=== PATIENT | female | born 1940 | race Caucasian/White ===

== ENCOUNTER 2018-01-24 09:25 | Outpatient (CLI) | payer MEDICARE, BC | END 2018-01-24 09:26 | disposition home or self-care (01) | LOC: BICRAD 09:25 | PROVIDERS: ATTEND Internal Medicine Gastroenterology | DX: K59.09 Other constipation (principal); K58.9 Irritable bowel syndrome, unspecified | CPT/HCPCS: 74018 ==

== ENCOUNTER 2018-04-19 11:59 | Outpatient (CLI) | payer MEDICARE, BC ==
--- NOTE | 2018-04-19 16:16 | MRI ---
MRI ABDOMEN WITH AND WITHOUT IV CONTRAST: (MR ENTEROGRAPHY) Date: 04/19/18 HISTORY: Constipation, diarrhea. FINDINGS: The visualized portions of the liver, spleen, pancreas, adrenal glands, and kidneys are normal. The p atient is post cholecystectomy. No free air, free fluid, or lymphadenopathy noted in the abdomen or p tony. The small bowel loops are not abnormally dilated. No abnormal postcontrast enhancement or enhancing m ass is seen. The patient is post hysterectomy. A 1.0 cm Bartholin gland cyst is present in the vagina . The bone marrow signal is normal. There is sigmoid diverticulosis. IMPRESSION: Sigmoid diverticulosis. POS: OFF
== END 2018-04-19 12:00 | disposition home or self-care (01) ==
LOC: MRI 11:59 → EDSTATUS 13:00
PROVIDERS: ATTEND Internal Medicine Gastroenterology
DX: K59.09 Other constipation (principal); R19.7 Diarrhea, unspecified; K57.30 Diverticulosis of large intestine without perforation or abscess without bleeding
CPT/HCPCS: 36415; 74183; 82565

== ENCOUNTER 2018-12-31 15:47 | Emergency (ER) | payer MEDICARE, BC ==
[2018-12-31] MEDS ORDERED: Morphine 4 MG/ML VIAL ONE (16:27)
[2018-12-31] MEDS ORDERED: Ondansetron PF 4 MG/2 ML Vial ONE (16:29)
[2018-12-31 16:58] LABS: #Basophils 0.1 thou/uL (0.0-0.2); #Eosinphils 0.3 thou/uL (0.0-0.7); #Lymphocytes 1.5 thou/uL (1.20-3.40); #Monocytes 0.6 thou/uL (0.11-0.59); #Neutrophils 6.3 thou/uL (1.40-6.50); %Basophils 0.9 % (0.0-1.0); %Eosinophils 3.3 % (0.0-10.0); %Lymphocytes 16.9 % (21.0-51.0); %Monocytes 6.8 % (0.0-10.0); %Neutrophils 72.1 % (42.0-75.0); Hemoglobin 13.4 g/dL (12.0-16.0); Mean Corpuscular Hemoglobin 30.3 pg (27.0-31.0); Mean Corpuscular Volume 91.8 fL (78.0-98.0); Mean Platelet Volume 7.2 fL (7.4-10.4); Platelet Count 233 thou/uL (130-400); RBC Distribution Width 11.8 % (11.5-14.5); Red Blood Cell (RBC) Count 4.43 mill/uL (4.20-5.40); White Blood Cell (WBC) Count 8.7 thou/uL (4.8-10.8)
[2018-12-31 17:14] LABS: ALT (SGPT) 13 U/L (8-55); AST (SGOT) 18 U/L (5-34); Albumin 4.1 g/dL (3.4-4.8); Alkaline Phosphatase 96 U/L (40-150); Anion Gap 15 mmol/L (10-20); BUN (Urea Nitrogen) 21 mg/dL (9.8-20.1); Bilirubin, Total 0.4 mg/dL (0.2-1.2); Calc. Creatinine Clearance 0 mL/min (70-130); Calcium 9.7 mg/dL (7.8-10.44); Carbon Dioxide 19 mmol/L (23-31); Chloride 108 mmol/L (98-107); Estimated GFR-MDRD 47; Glucose 98 mg/dL (83-110); Potassium 3.9 mmol/L (3.5-5.1); Protein, Total 7.1 g/dL (6.0-8.3); Sodium 138 mmol/L (136-145)
[2018-12-31 18:27] LABS: Bilirubin Negative (Negative); Blood, Urine Negative (Negative); Glucose, Urine (Dipstick) Negative (Negative); Leukocyte Small (Negative); Nitrite Negative (Negative); Protein, Urine (Dipstick) Negative (Neg-Trace); Urobilinogen 0.2 mg/dL (0.2-1.0); pH, Urine 5.5 (5.0-9.0)
[2018-12-31 18:28] LABS: Clarity Hazy (Clear); Specific Gravity, Urine 1.008 (1.002-1.036)
--- NOTE | 2018-12-31 18:28 | CT ---
CT ABDOMEN WITH CONTRAST CT PELVIS WITH CONTRAST: DATE: 12/31/18 at 6:07 p.m. HISTORY: 78-year-old female with lower abdominal pain and constipation. COMPARISON: None available. TECHNIQUE: IV injection of iodinated contrast media: Isovue 370 Oral contrast media: Administered FINDINGS: No pleural effusion. No pneumoperitoneum or ascites. Absent uterus. Pelvic relaxation. Distended urin samira bladder with thin, normal kate. No evidence of colonic diverticulitis. Liquid stool in the cecum , throughout the ascending colon, transverse colon with air fluid levels, and descending colon. Ther e is solid stool throughout the rectosigmoid. Moderate dilation of right renal pelvis and mild to mod erate dilation of right renal calyces. Mild dilation of left renal calyces and left renal pelvis. Mil d dilation of proximal bilateral ureters, left greater than right. No evidence of renal, ureteral, or bladder calculus. Liver, abdominal aorta, spleen, adrenals, and pancreas, demonstrate no major patho logy. Large duodenal diverticulum with air fluid level displacing the pancreatic head. Cholecystectom y clips in the gallbladder fossa. No small bowel dilation. Oral contrast material has not reached the terminal ileum. Normal appendix. Surgical clips are present adjacent to the esophagogastric junction , where there is architectural distortion. IMPRESSION: 1. Solid stool in the rectosigmoid colon (current constipation), and liquid stool throughout the rest of the colon proximal to it (impending diarrhea). 2. Probable Tabitha fundoplication. 3. Status post cholecystectomy. 4. No small bowel obstruction. 5. Mild to moderate right hydronephrosis and mild left hydronephrosis, probably due to distende d urinary bladder. 6. Status post hysterectomy and resultant pelvic relaxation. CRISTEL Hallman POS: KARI
[2018-12-31 18:29] LABS: Bacteria/HPF 1+ HPF (None Seen); RBC/HPF None Seen HPF (0-3)
== END 2018-12-31 18:38 | disposition home or self-care (01) ==
LOC: SCSER 15:47
DX: R10.30 Lower abdominal pain, unspecified (principal); I10 Essential (primary) hypertension; F32.9 Major depressive disorder, single episode, unspecified; Z79.899 Other long term (current) drug therapy
CPT/HCPCS: 74177; 80053; 81003; 81015; 85025; 87086; 96361; 96374; 96375; J2270; J2405

== ENCOUNTER 2019-04-24 18:38 | Observation (INO) | payer MEDICARE, BC ==
--- NOTE | 2019-04-24 19:48 | CT ---
EXAM: CT brain without contrast HISTORY: Subdural hemorrhage seen on MRI performed earlier today COMPARISON: MRI brain 04/24/2019 TECHNIQUE: Multiple contiguous axial images were obtained and a CT of the brain without contrast. FINDINGS: There are scattered hypodensities in the subcortical and periventricular white matter consi stent with small vessel ischemic disease. There appear to be bilateral subdural hygromas, left greater than right. There is a very small hyperdense region in the anterior aspect of the left subdur al collection which may represent a small amount of acute on chronic blood. No significant midline shift or downward herniation are seen. The calvarium and overlying soft tissues are unremarkable. The visualized paranasal sinuses and masto id air cells are well aerated. IMPRESSION: Subdural hygromas with small hyperdense region in the left frontal region which may repre sent a small amount of acute on chronic subdural hematoma.
--- NOTE | 2019-04-24 19:49 | CT ---
EXAM: CT of the cervical spine without contrast HISTORY: 2 recent falls. Subdural hemorrhage seen on MRI. Neck pain. COMPARISON: None TECHNIQUE: Multiple contiguous axial images were obtained in a CT of the cervical spine without contr ast. Sagittal and coronal reformats were performed. FINDINGS: The vertebral bodies demonstrate normal height and alignment without fracture or subluxatio n. No prevertebral soft tissue swelling is seen. Severe degenerative changes are seen throughout the cervical spine. The posterior facets are well aligned. Normal alignment of the skull base with the cervical spine is seen. The lung apices and cervical soft tissues are unremarkable. IMPRESSION: Severe degenerative changes without evidence of acute osseous abnormality of the cervical spine.
--- NOTE | 2019-04-24 19:51 | RAD ---
EXAM: Single view of the chest HISTORY: Subdural hematoma. Multiple recent falls. COMPARISON: None FINDINGS: Single view of the chest shows a normal sized cardiomediastinal silhouette. There is no nasreen dence of consolidation, mass, or pleural effusion. Degenerative changes are seen in the spine. IMPRESSION: No evidence of acute cardiopulmonary disease
[2019-04-24 20:22] LABS: #Basophils 0.1 thou/uL (0.0-0.2); #Eosinphils 0.4 thou/uL (0.0-0.7); #Lymphocytes 1.9 thou/uL (1.20-3.40); #Monocytes 0.6 thou/uL (0.11-0.59); #Neutrophils 4.9 thou/uL (1.40-6.50); %Basophils 0.8 % (0.0-1.0); %Eosinophils 5.6 % (0.0-10.0); %Lymphocytes 23.6 % (21.0-51.0); %Monocytes 8.1 % (0.0-10.0); %Neutrophils 61.9 % (42.0-75.0); Hemoglobin 13.7 g/dL (12.0-16.0); Mean Corpuscular HGB CONC 33.6 g/dL (32.0-36.0); Mean Corpuscular Hemoglobin 31.1 pg (27.0-31.0); Mean Corpuscular Volume 92.4 fL (78.0-98.0); Mean Platelet Volume 7.5 fL (7.4-10.4); Platelet Count 201 thou/uL (130-400); Red Blood Cell (RBC) Count 4.41 mill/uL (4.20-5.40); White Blood Cell (WBC) Count 7.9 thou/uL (4.8-10.8)
[2019-04-24 20:29] LABS: INR-International Normal Ratio 1.1; Prothrombin Time 14.6 SEC (12.0-14.7)
[2019-04-24 20:45] LABS: ALT (SGPT) 12 U/L (8-55); AST (SGOT) 16 U/L (5-34); Alkaline Phosphatase 99 U/L (40-150); Anion Gap 15 mmol/L (10-20); BUN (Urea Nitrogen) 19 mg/dL (9.8-20.1); Bilirubin, Total 0.4 mg/dL (0.2-1.2); Calc. Creatinine Clearance 0 mL/min (70-130); Calcium 9.2 mg/dL (7.8-10.44); Carbon Dioxide 19 mmol/L (23-31); Chloride 105 mmol/L (98-107); Estimated GFR-MDRD 51; Globulin 2.9 g/dL (2.4-3.5); Glucose 76 mg/dL (83-110); Potassium 4.1 mmol/L (3.5-5.1); Protein, Total 6.9 g/dL (6.0-8.3); Sodium 135 mmol/L (136-145)
[2019-04-24 20:46] LABS: PTT 22.6 SEC (22.9-36.1)
[2019-04-24] MEDS ORDERED: Aspirin Chewable 81 MG TAB ONE (21:54)
[2019-04-24 22:02] LABS: Bilirubin Negative (Negative); Blood, Urine Negative (Negative); Clarity CLOUDY (Clear); Glucose, Urine (Dipstick) Negative (Negative); Leukocyte Large (Negative); Nitrite Negative (Negative); Protein, Urine (Dipstick) Negative (Neg-Trace); Urobilinogen 0.2 mg/dL (0.2-1.0)
[2019-04-24 22:06] LABS: Bacteria/HPF None Seen HPF (None Seen); Hyaline Casts/LPF 4-6 HYALINE CAST LPF (0-3 Hyaline); Pathc Cast-AUWi Flag 0.68 (0-2.49); WBC/HPF Greater Than 50 HPF (0-3)
[2019-04-24 23:43] LABS: Troponin I 0.095 ng/mL (< 0.028)
[2019-04-25] MEDS ORDERED: Zolpidem Tartrate 5 MG TAB PO SCH ×2 (00:45→21:00)
[2019-04-25 02:33] LABS: Troponin I 0.086 ng/mL (< 0.028)
[2019-04-25 05:30] VITALS: BMI 24.5
[2019-04-25] MEDS ORDERED: Acetaminophen 325 MG TAB PO PRN (08:55)
[2019-04-25] MEDS ORDERED: Ondansetron PF 4 MG/2 ML Vial IVP PRN (08:55)
[2019-04-25] MEDS ORDERED: Prevnar 13-Val Conj/PF 0.5 ML SYRINGE IM ONE (09:00)
--- NOTE | 2019-04-25 09:58 | HP ---
PRIMARY CARE PROVIDER: Dr. Paulino. CHIEF COMPLAINT: Abnormal MRI. HISTORY OF PRESENT ILLNESS: This is a 78-year-old female with major depressive disorder, on multiple medications, who presented to her primary care provider's office yesterday with a complaint of falls and weakness. The patient received an MRI, and was contacted by Dr. Paulino around 5:00 p.m. and directed to the emergency room due to concern of subdural hematoma. The patient reports last week on Wednesday, having a fall. She states that she was sitting on the couch, went up to go to bed, followed by blacking out and weakness. She was not feeling poorly prior to this, and had a fall and landed on the left side of her face. was able to assist her into bed. Two days later, now four days ago, she had a fall in the bathroom. She denies any chest pain, fevers, or chills. Denies any shortness of breath, nausea, or vomiting. She has a history of IBS with alternating diarrhea and constipation, and states that this is unchanged. She has worked with multiple GI providers for management of this. Since the fall, she has noted nasal congestion, headache, difficulty with sleeping. She reports a new medications started 2 weeks ago to help with the IVF. Denies any other changes of her usual medications. In the emergency room, the patient underwent a CT scan, which shows some changes and may represent a small amount of acute on chronic subdural hematoma. In the emergency room, per the documentation shows that the patient received aspirin 324 mg. ALLERGIES: NO KNOWN ALLERGIES TO MEDICATION. CURRENT MEDICATIONS: Per the ER list and this will need to be confirmed with Mami at [facility]; 1. Perphenazine 2 mg b.i.d. 2. Exline 300 mg at bedtime. 3. Venlafaxine 75 mg b.i.d. 4. Lamotrigine 25 mg two tablets b.i.d. 5. Linzess. PAST MEDICAL HISTORY: 1. Major depressive disorder. 2. IBS. PAST SURGICAL HISTORY: 1. Cholecystectomy. 2. Hiatal hernia repair. 3. Toe surgery. SOCIAL HISTORY: The patient is . Has a glass of wine at night with dinner. No tobacco. She is a full code and surrogate decision maker is her . FAMILY HISTORY: Significant for major depressive disorder and suicide in her brother at age 25. REVIEW OF SYSTEMS: Positive for diarrhea, 3 episodes yesterday with 1 episode of passing hard stool, nasal congestion, headache in the frontal area, restless sleep. Negative for chest pain, difficulty breathing, dizziness, nausea, vomiting, or abdominal pain. All remaining review of systems are reviewed and negative. PHYSICAL EXAMINATION: VITAL SIGNS: Blood pressure 119/74, temperature 97.8, pulse 88, respirations 17 , saturations 92% on room air. GENERAL: Awake, alert, responsive, in no apparent distress. Able to answer questions appropriately. HEENT: She has areas of ecchymosis around her left eye. Pupils equal, round, and reactive to light. Oral mucosa is pink and moist. NECK: Supple, nontender. LYMPHATICS: No palpable cervical or supraclavicular lymphadenopathy. VASCULAR: No audible carotid bruits. LUNGS: Clear to auscultation bilateral. No audible wheezing, rhonchi, or rales. HEART: Normal S1 and S2. Regular rate and rhythm. No audible murmurs. ABDOMEN: Soft with present bowel sounds. Nontender, nondistended. EXTREMITIES: No clubbing, cyanosis, or edema. NEUROLOGIC: No gross deficits. 2+ patellar, brachioradialis, and biceps reflexes with no ankle clonus bilateral. PSYCHIATRIC: The patient is euthymic. Alert and oriented x4. LABORATORY DATA: Reviewed. CBC shows 7.9, 13.7, 40.7, 201. INR 1.1. Chemistry; 135, 4.1, 105, 19, 19, 1.05, 76. LFTs negative. Troponin 0.082, 0.095, 0.086. Urinalysis shows large leukocyte esterase, greater than 50 white blood cells, 4 to 6 squamous cells, and 4 to 6 hyaline casts. IMAGING STUDIES: EKG, personally reviewed, normal axis, normal intervals, sinus rhythm, and no ST changes. Chest x-ray, personally reviewed, negative for acute cardiopulmonary disease. Brain CT, subdural hygromas with small hyperdense region in the left frontal area, which may represent a small amount of acute on chronic subdural hematoma. CT of the neck shows severe degenerative changes without evidence of acute osseous abnormality. IMPRESSION: 1. Syncope in a the patient with a new diagnosis of subdural hematoma. 2. Urinary tract infection. 3. Irritable bowel syndrome with diarrhea. 4. Major depressive disorder, on multiple medications to include lithium. 5. Metabolic acidosis may be secondary to diarrhea. PLAN: 1. Observation status in the hospital for now. 2. Neurosurgery consultation given the abnormal CT. 3. Documentation from the ER shows aspirin was administered. We will look into this, hold on any further here and avoid NSAIDs. 4. Initiation of Rocephin IV and obtain urine culture from the sample collected in the ED. 5. Clarify her home medications and resume the appropriate ones. 6. We will check a lithium level. 7. Check C diff given the reported diarrhea. 8. PT/OT. 9. Monitoring of her blood count and electrolytes. 10. Obtain carotid ultrasound and echocardiogram, monitor on telemetry for syncope evaluation. 11. The patient is at high risk given age comorbidities and current presentation. 12. Anticipated length of stay pending on workup as well as response to therapy. 13. Reviewed the plan of care with the patient, who demonstrates understanding. No questions or further needs at the end of evaluation. 14. The patient is a full code. Surrogate decision maker is her . Job ID: [id number] [facility]
[2019-04-25] MEDS ORDERED: lamoTRIgine 100 MG TAB PO SCH (11:30)
[2019-04-25] MEDS ORDERED: Venlafaxine HCl XR 75 MG CAP PO SCH (11:45)
[2019-04-25] MEDS ORDERED: Perphenazine 2 MG TAB PO SCH (11:45)
--- NOTE | 2019-04-25 11:54 | ULT ---
CAROTID ULTRASOUND WITH ACOSTA SCALE AND DOPPLER DUPLEX COLOR FLOW IMAGING SPECTRAL ANALYSIS PERFORMED: DATE: 04/25/19 CLINICAL INDICATION: Syncope. FINDINGS: There is scattered mild atherosclerotic calcification of the carotid arteries. PEAK SYSTOLIC VELOCITY (CM/S): Right CCA 88 Left CCA 66 Right ICA 79 Left ICA 94 There is antegrade flow within the visualized bilateral vertebral arteries. IMPRESSION: 1. No hemodynamically significant stenosis of the right internal carotid artery. 2. No hemodynamically significant stenosis of the left internal carotid artery. POS: [facility]
[2019-04-25] MEDS: cefTRIAXone\\ROCEPHIN 1 GM in Sodium Chloride 0.9% 100 ML IVPB SCH (12:33)
[2019-04-25] MEDS ORDERED: Acetaminophen 500 MG TAB PO PRN (18:38)
[2019-04-25] MEDS: Venlafaxine HCl XR 75 MG CAP PO SCH (21:23)
[2019-04-25] MEDS: lamoTRIgine 100 MG TAB PO SCH (21:23)
[2019-04-25] MEDS: Perphenazine 2 MG TAB PO SCH (21:23)
[2019-04-26 05:02] LABS: #Basophils 0.1 thou/uL (0.0-0.2); #Eosinphils 0.4 thou/uL (0.0-0.7); #Lymphocytes 1.4 thou/uL (1.20-3.40); #Monocytes 0.5 thou/uL (0.11-0.59); #Neutrophils 2.6 thou/uL (1.40-6.50); %Basophils 1.4 % (0.0-1.0); %Eosinophils 9.1 % (0.0-10.0); %Lymphocytes 27.4 % (21.0-51.0); %Monocytes 9.5 % (0.0-10.0); %Neutrophils 52.6 % (42.0-75.0); Hemoglobin 12.5 g/dL (12.0-16.0); Mean Corpuscular HGB CONC 33.4 g/dL (32.0-36.0); Mean Corpuscular Hemoglobin 31.1 pg (27.0-31.0); Mean Corpuscular Volume 92.9 fL (78.0-98.0); Mean Platelet Volume 6.8 fL (7.4-10.4); Platelet Count 185 thou/uL (130-400); RBC Distribution Width 11.8 % (11.5-14.5); Red Blood Cell (RBC) Count 4.03 mill/uL (4.20-5.40); White Blood Cell (WBC) Count 4.9 thou/uL (4.8-10.8)
[2019-04-26 05:24] LABS: Anion Gap 12 mmol/L (10-20); BUN (Urea Nitrogen) 12 mg/dL (9.8-20.1); Calc. Creatinine Clearance 47 mL/min (70-130); Calcium 9.4 mg/dL (7.8-10.44); Carbon Dioxide 21 mmol/L (23-31); Chloride 108 mmol/L (98-107); Estimated GFR-MDRD 55; Glucose 88 mg/dL (83-110); Sodium 137 mmol/L (136-145)
--- NOTE | 2019-04-26 07:39 | CON ---
DATE OF CONSULTATION: Ms. Linder is a very pleasant 78-year-old woman, who over the past 12 to 18 months has been experiencing falls calls syncopal events or blackouts or she does not recall. Most recently, she has had two in the last 90 days, striking her face most recently, where she has a small amount of ecchymosis over the left cheek. also states over the last 2 years, she has been dealing with hallucinations where she is seeing and hearing groups of people interacting in the home whom are clearly not there. This is being worked up by her primary care physician, Dr. Paulino, and most recently, an MRI was performed in the outpatient setting, which revealed chronic subdural fluid collection of the left frontal temporal convexity, and for this purpose, she was sent to the emergency department for further evaluation, where they performed a CT scan, that confirmed this. This was the reason that Neurosurgery was consulted. She was admitted for workup here and for workup of her syncopal events, and our colleagues in Medicine have been performing a diagnostic work to work this up. From an imaging perspective, this subdural collection is definitively chronic with maybe one small area anteriorly that could potentially show a spot of acute blood, which is only a couple of millimeters wide. The chronic bleed that is present is minimally compressed within the underlying brain parenchyma. There is no midline shift, and from a neurologic perspective, the patient is alert and oriented x4. She has no neurologic deficit. Her exam is nonfocal and she is very pleasant. Speech is fluid and uninhibited and appropriate. From neurosurgical perspective, there is no need to drain this. I would recommend outpatient followup in 2 to 3 weeks. Job ID: [id number]
[2019-04-26] MEDS: Venlafaxine HCl XR 75 MG CAP PO SCH (09:55)
[2019-04-26] MEDS: lamoTRIgine 100 MG TAB PO SCH (09:55)
[2019-04-26] MEDS: cefTRIAXone\\ROCEPHIN 1 GM in Sodium Chloride 0.9% 100 ML IVPB SCH (09:55)
[2019-04-26] MEDS: Perphenazine 2 MG TAB PO SCH (09:56)
--- NOTE | 2019-04-26 11:59 | DIS ---
DATE OF ADMISSION: 04/24/2019 DATE OF DISCHARGE: 04/26/2019 CONSULTANTS: Mauro Staley PA-C, of Neurosurgery. MEDICATIONS: Reconciled at discharge. New medication: 1. Keflex 500 mg p.o. b.i.d. for 5 days starting tomorrow. 2. Florastor 250 mg p.o. daily prescription for 30 tablets. Medications to resume: 1. Lamotrigine 50 mg p.o. b.i.d. 2. Mcneal 300 mg extended release at bedtime. 3. Perphenazine 2 mg b.i.d. 4. Venlafaxine 75 mg extended release b.i.d. 5. Zolpidem tartrate 6.25 mg p.o. at bedtime. FINAL DIAGNOSES: 1. Syncope with workup only notable for urinary tract infection. 2. Asymptomatic urinary tract infection. 3. Subdural hematoma, acute on chronic. SECONDARY DIAGNOSES: 1. Major depressive disorder. 2. Irritable bowel syndrome. HISTORY OF PRESENT ILLNESS: Ms. Linder is a 78-year-old female with the above medical problems, who presented to her primary care office with a complaint of fall and weakness. She underwent MRI, which was concerning for subdural hematoma and she was directed to the emergency room. HOSPITAL COURSE: 1. Subdural hematoma. The patient underwent CT scan here, which also demonstrated it. She was evaluated by Neurosurgery today with recommendation for followup in the outpatient setting in 2 to 3 weeks. 2. For syncope, the patient evaluated by Physical Therapy and discharged to the walking program. She was also evaluated by OT, who worked with her. She underwent echocardiogram and carotid ultrasound, which were both normal. Telemetry monitoring demonstrated a normal sinus rhythm. She is overall feeling well. 3. UTI. The patient started on Rocephin and has received two doses of 1 g IV. Her urine culture shows some mixed skin eleni. Given the worsening of falls and syncopal event, I think it is secondary to urinary tract infection and we will treat her with an additional 5 days of Keflex to complete 1-week course. She will need follow up with her primary care provider. 4. Major depression. The patient's reports she has been on these mood medications for many years that have not been adjusted. They have had difficulty in finding a psychiatrist to assist with this. They will follow up with Dr. Paulino for his recommendations on moving forward. Her lithium level was checked and found to be low. There are no changes to her medications, the lithium level was checked (and low) due to the syncope. The patient overall doing well and does meet criteria for discharge to home. PHYSICAL EXAMINATION: VITAL SIGNS: On day of discharge; blood pressure 124/71, temperature 97.8, pulse 75, respirations 16, and saturations 96% on room air. GENERAL: Awake, alert, responsive, in no apparent distress. LUNGS: Clear to auscultation bilateral. HEART: Normal S1 and S2. Regular rate and rhythm. No audible murmurs. ABDOMEN: Soft. Present bowel sounds. EXTREMITIES: Lower extremities, no edema. NEURO: No focal deficits. GARRETT FINDINGS AND TEST RESULTS: BMP today; sodium 137, potassium 4.0, chloride 108, bicarbonate 21, BUN 12, creatinine 0.97, glucose 88, and calcium 9.4. Troponin indeterminate at 0.082, 0.095 and 0.086. CBC; WBC 4.9, hemoglobin 12.5, hematocrit 37.4, and platelets 185. Urinalysis shows large leukocyte esterase, greater than 50 white blood cells, and 4 to 6 squamous cells. Mcneal level 0.446 with our normal range here of 1.0 to 1.2. Echocardiogram shows an EF of 60% to 65%. Otherwise, there are trace tricuspid regurgitation, otherwise normal. Carotid Doppler ultrasound of her neck showed no hemodynamically significant stenosis. Chest x-ray performed on April 24, negative for an acute process. C-spine CT shows severe degenerative changes without evidence of an acute abnormality. Brain CT on March 25 shows subdural hygromas with small hyperdense region in the left frontal area, which may represent a small amount of acute on chronic subdural hematoma. DIET: Regular. ACTIVITY: As tolerated. FOLLOWUP: Followup is with Dr. Paulino early next week for repeating the urine test, monitoring of medications, and to address any other health needs. CODE STATUS: Full. DISCHARGE DISPOSITION: Home. I reviewed the plan of care with the patient and her family. No questions or further needs at the end of evaluation. TIME SPENT: Total time coordinating discharge is 35 minutes. Job ID: [id number] [facility]TDD
[2019-04-26 12:01] VITALS: BP 130/75; TEMP 98.3
--- NOTE | 2019-04-29 21:35 | EKG ---
Test Reason : Blood Pressure : / mmHG Vent. Rate : 081 BPM Atrial Rate : 081 BPM P-R Int : 136 ms QRS Dur : 090 ms QT Int : 392 ms P-R-T Axes : 039 002 042 degrees QTc Int : 455 ms Normal sinus rhythm Normal ECG Confirmed by YULI CERVANTES M.D. ([id number]), map editor STEWART OSORIO ([id number]) on 04/29/2019 9:35:17 PM Referred By: Confirmed By:YULI CERVANTES M.D.
== END 2019-04-26 13:20 | disposition home or self-care (01) ==
LOC: ERS 18:38 → 2NO 22:38 → 2SE 04-25 11:48
PROVIDERS: ADMIT Internal Medicine; ATTEND Internal Medicine
DX: R55 Syncope and collapse (principal); N39.0 Urinary tract infection, site not specified; I62.01 Nontraumatic acute subdural hemorrhage; I62.03 Nontraumatic chronic subdural hemorrhage; F32.9 Major depressive disorder, single episode, unspecified; K58.0 Irritable bowel syndrome with diarrhea; E87.2 Acidosis; Z79.899 Other long term (current) drug therapy; Z98.890 Other specified postprocedural states
CPT/HCPCS: 70450; 71045; 72125; 80048; 80053; 80178; 82553; 84484 ×3; 85025 ×2; 85610; 85730; 87086; 93005; 93306; 93880; 94760; 96365; 96366; 97139; 99285; G0378 ×2; 36415; 81003; 81015; J0696; J3490; Q0175

== ENCOUNTER 2019-05-09 07:34 | Outpatient (CLI) | payer MEDICARE, BC ==
--- NOTE | 2019-05-09 12:49 | NM ---
Myocardial perfusion scan with SPECT imaging HISTORY: Syncope and collapse COMPARISON: None. FINDINGS: This examination is performed using 31.6 mCi of 90 9M technetium sestamibi on the stress an d 10.5 mCi on the resting images. This shows a normal distribution of radiopharmaceutical without signs of ischemia or scar. Wall motion: There is symmetric contractility of the ventricle. Left ventricular ejection fraction: Calculated left ventricular ejection fraction was 87% IMPRESSION: Unremarkable myocardial perfusion scan.
[2019-05-09] MEDS ORDERED: ADENOSINE 60 MG/20 ML VIAL ONE (16:53)
== END 2019-05-09 07:35 | disposition home or self-care (01) ==
LOC: NM 07:34
PROVIDERS: ATTEND Internal Medicine
DX: R55 Syncope and collapse (principal)
CPT/HCPCS: 78452; 93017; A9500; J0153

== ENCOUNTER 2019-05-23 08:45 | Outpatient (CLI) | payer MEDICARE, BC ==
--- NOTE | 2019-05-23 09:08 | CT ---
Exam: Head CT without contrast HISTORY: Follow-up subdural hematoma. Fall 3 months ago. COMPARISON: 04/24/2019 FINDINGS: Hemorrhage: No acute intraparenchymal hemorrhage. Redemonstration of a left frontal temporal extra-ax ial subdural hematoma measuring 0.9 cm (previously measuring 0.9 cm. Minimal mass effect upon the left frontal and temporal lobe. No significant sulcal effacement. 1.7 mm of right to left midline petr ft. Basilar cisterns are patent.. Brain parenchyma: Cortical oliver-white matter differentiation is preserved. Ventricular system: Ventricles and sulci are patent and symmetric. Calvarium: Intact. Sinuses and mastoid air cells: Adequate aeration. IMPRESSION: 1. Redemonstration of a left frontal subdural hematoma. Stable mass effect upon the adjacent brain pa renchyma. 1.7 mm of right to left subfalcine herniation. Subdural hematoma has mixed attenuation and is felt to represent a possible subacute subdural hematoma. Continued surveillance is recommended . CODE T
== END 2019-05-23 08:46 | disposition home or self-care (01) ==
LOC: TBSIIMAG 08:45
PROVIDERS: ATTEND Neurological Surgery
DX: S06.5X9D Traumatic subdural hemorrhage with loss of consciousness of unspecified duration, subsequent encounter (principal); G93.89 Other specified disorders of brain
CPT/HCPCS: 70450

== ENCOUNTER 2019-07-04 09:38 | Outpatient (CLI) | payer MEDICARE, BC ==
--- NOTE | 2019-07-04 10:13 | CT ---
CT HEAD WITHOUT IV CONTRAST COMPARISON: 05/23/2019 HISTORY: Follow-up nontraumatic chronic subdural hematoma. TECHNIQUE: Axial CT imaging at 5 mm intervals from vertex through skull base without contrast FINDINGS: Previously noted subdural hemorrhage along the left frontal parietal convexity has resolved. No intra parenchymal or extra-axial hemorrhage is seen on today's examination. Diffuse cerebral volume loss is again noted. Again noted are chronic small vessel ischemic changes. There is no evidence of an acu te infarction, mass effect, or midline shift. The ventricular system is normal in size, shape, and position. Visualized paranasal sinuses are clear. Osseous structures appear intact. IMPRESSION: 1. No acute intracranial abnormality demonstrated. 2. Resolution of the previously noted left-sided subdural hematoma. 3. Chronic small vessel ischemic changes and cerebral volume loss similar to the prior exam.
== END 2019-07-04 09:39 | disposition home or self-care (01) ==
LOC: TBSIIMAG 09:38
PROVIDERS: ATTEND Neurological Surgery
DX: I62.00 Nontraumatic subdural hemorrhage, unspecified (principal); G93.89 Other specified disorders of brain
CPT/HCPCS: 70450

== ENCOUNTER 2019-10-21 15:09 | Emergency (ER) | payer MEDICARE, BC ==
[~2019-10-21 15:09] MED LIST: Iopamidol-370 76% 500 ML 1 ML ONE
[2019-10-21 15:43] LABS: #Basophils 0.1 thou/uL (0.0-0.2); #Eosinphils 0.6 thou/uL (0.0-0.7); #Monocytes 0.5 thou/uL (0.11-0.59); #Neutrophils 3.8 thou/uL (1.40-6.50); %Basophils 0.9 % (0.0-1.0); %Eosinophils 8.4 % (0.0-10.0); %Monocytes 7.3 % (0.0-10.0); %Neutrophils 54.4 % (42.0-75.0); Hemoglobin 13.4 g/dL (12.0-16.0); Mean Corpuscular HGB CONC 33.6 g/dL (32.0-36.0); Mean Corpuscular Volume 92.1 fL (78.0-98.0); Platelet Count 258 thou/uL (130-400); RBC Distribution Width 11.3 % (11.5-14.5); Red Blood Cell (RBC) Count 4.32 mill/uL (4.20-5.40)
[2019-10-21 16:07] LABS: ALT (SGPT) 8 U/L (8-55); AST (SGOT) 13 U/L (5-34); Albumin 3.8 g/dL (3.4-4.8); Alkaline Phosphatase 82 U/L (40-110); Anion Gap 11 mmol/L (10-20); BUN (Urea Nitrogen) 13 mg/dL (9.8-20.1); Bilirubin, Total 0.3 mg/dL (0.2-1.2); Calc. Creatinine Clearance 0 mL/min (70-130); Carbon Dioxide 25 mmol/L (23-31); Chloride 104 mmol/L (98-107); Estimated GFR-MDRD 47; Globulin 2.7 g/dL (2.4-3.5); Glucose 112 mg/dL (83-110); Lipase 15 U/L (8-78); Protein, Total 6.5 g/dL (6.0-8.3); Sodium 136 mmol/L (136-145)
[2019-10-21 16:51] LABS: Clarity Clear (Clear)
[2019-10-21 16:52] LABS: Leukocyte Unable to Interpret Leu/uL (Negative); Nitrite Unable to Interpret (Negative); Protein, Urine (Dipstick) Unable to Interpret mg/dL (Neg-Trace)
[2019-10-21 16:53] LABS: Bilirubin Unable to Interpret (Negative); Glucose, Urine (Dipstick) Unable to Interpret mg/dL (Negative); Urobilinogen UNABLE TO INTERPRET mg/dL (Less than 2)
[2019-10-21 16:54] LABS: Blood, Urine Unable to Interpret (Negative)
[2019-10-21 16:55] LABS: Bacteria/HPF 1+ HPF (None Seen); RBC/HPF 0-3 HPF (0-3); Squamous Epithelial 0-3 HPF (0-3)
[2019-10-21] MEDS ORDERED: Ondansetron PF 4 MG/2 ML Vial ONE (18:06)
[2019-10-21] MEDS ORDERED: Morphine 4 MG/ML VIAL ONE (18:06)
--- NOTE | 2019-10-21 18:57 | CT ---
CT abdomen and pelvis: 10/21/2019 COMPARISON: 12/31/2018 HISTORY: Left-sided abdominal pain, left lower quadrant pain TECHNIQUE: Axial CT imaging at 5 mm intervals through the abdomen and pelvis with IV contrast. Winter l and sagittal reformatted imaging obtained. FINDINGS: The imaged lung bases are unremarkable. No free intraperitoneal fluid noted. The superior m ost aspect of the right lobe of the liver is not fully imaged. Cholecystectomy clips are present. Imaged portions of the liver, spleen, pancreas, adrenal glands, and kidneys appears unremarkable. Pos t cholecystectomy clips are present. Postoperative clips are seen in the region of the gastric fundus. There is a small hiatal hernia. The lack of oral contrast media limits assessment of the bowel. There is diffuse diverticulosis of th e distal descending colon as well as the sigmoid colon. No evidence for diverticulitis. No evidence for bowel obstruction. The appendix appears unremarkable. Vascular structures appear patent. No abdominal or pelvic lymphadenopathy. Review of the osseous stru ctures demonstrates multilevel degenerative change of the spine, particularly the lower lumbar spine. No worrisome lytic or blastic bone lesion. IMPRESSION: Numerous incidental/chronic findings as detailed above. No acute findings are seen.
[2019-10-21] MEDS ORDERED: cefTRIAXone\\ROCEPHIN 1 GM VIAL ONE (19:57)
== END 2019-10-21 20:41 | disposition home or self-care (01) ==
LOC: ERS 15:09
DX: N10 Acute pyelonephritis (principal); K57.30 Diverticulosis of large intestine without perforation or abscess without bleeding; F32.9 Major depressive disorder, single episode, unspecified; Z79.899 Other long term (current) drug therapy
CPT/HCPCS: 36415; 74177; 80053; 81003; 81015; 83690; 84484; 85025; 87086; 93005; 96361; 96365; 96375; J0696; J2270; J2405; Q9967

== ENCOUNTER 2021-08-01 14:17 | Emergency (ER) | payer OTHER, MEDICARE, BC | END 2021-08-01 17:15 | disposition home or self-care (01) | LOC: ERS 14:17 | DX: S09.90XA Unspecified injury of head, initial encounter (principal); W01.190A Fall on same level from slipping, tripping and stumbling with subsequent striking against furniture, initial encounter; Z79.899 Other long term (current) drug therapy | CPT/HCPCS: 70450 ==